=== PATIENT | female | born 1975 | race Caucasian/White ===

== ENCOUNTER → 2020-10-08 15:58 | Outpatient (BNVA) | payer SELFPAY | PROVIDERS: Visit Provider Family Medicine | DX: N30.01 Acute cystitis with hematuria (principal); R30.0 Dysuria | CPT/HCPCS: 81000 ==

== ENCOUNTER → 2020-11-12 11:22 | Outpatient (BNVA) | payer SELFPAY | PROVIDERS: Visit Provider Family Medicine | DX: Z12.4 Encounter for screening for malignant neoplasm of cervix (principal); Z12.11 Encounter for screening for malignant neoplasm of colon; Z80.0 Family history of malignant neoplasm of digestive organs; Z12.39 Encounter for other screening for malignant neoplasm of breast | CPT/HCPCS: 88175 ==

== ENCOUNTER → 2020-12-02 15:29 | Outpatient (BNVA) | payer OTHER, SELFPAY | PROVIDERS: Visit Provider Nurse Practitioner Family | DX: Z20.828 Contact with and (suspected) exposure to other viral communicable diseases (principal); J06.9 Acute upper respiratory infection, unspecified | CPT/HCPCS: 87635 ==

== ENCOUNTER → 2021-01-16 14:54 | Outpatient (BNVA) | payer SELFPAY | PROVIDERS: Visit Provider Family Medicine | DX: A59.9 Trichomoniasis, unspecified (principal); G89.29 Other chronic pain; N89.8 Other specified noninflammatory disorders of vagina | CPT/HCPCS: 87491; 87591 ==

== ENCOUNTER 2024-02-29 06:00 | Outpatient (RCR) | payer OTHER, SELFPAY | END 2024-03-28 23:59 | disposition home or self-care (01) | LOC: MPT 06:00 | PROVIDERS: Visit Provider Nurse Practitioner | DX: S46.812D Strain of other muscles, fascia and tendons at shoulder and upper arm level, left arm, subsequent encounter (principal); X58.XXXD Exposure to other specified factors, subsequent encounter | CPT/HCPCS: 97110; 97124; 97140; 97162; G0283 ==

== ENCOUNTER 2024-11-30 14:10 | Emergency (ER) | payer SELFPAY ==
[2024-11-30 14:29] VITALS: BP 148/83; PULSE 67; RESP 18; TEMP 36.6; O2SAT 97; BMI 32.5
--- NOTE | 2024-11-30 15:22 | ED_ITS ---
HPI - Female Genitourinary 2 General: Chief complaint: Vaginal Bleeding Stated complaint: vaginal bleeding Time Seen by Provider: 11/30/24 15:15 History of Present Illness: 49-year-old female presents emergency ro om with complaints of vaginal bleeding that began yesterday. She states she has been bleeding heavily. She not had a period in 2 years no abdominal pain or pelvic cramping. She is not on any oral anticoagulants. No fever sweats chills no dysuria urgency or frequency Associated symptoms: Deny abdominal pain Related Data Home Medications Medication Instructions Recorded Confirmed sertraline 100 mg tablet 100 mg PO DAILY 11/30/24 11/30/24 Previous Rx's Medication Instructions Recorded ibuprofen 800 mg tablet 800 mg PO Q8H PRN pain 30 days #90 01/16/21 tabs Allergies Allergy/AdvReac Type Severity Reaction Status Date / Time No Known Allergies Allergy Verified 11/30/24 14:33 Review of Systems 2 Const: Denies: fever(s) or chills Card: Denies: chest pain Resp: Denies: dyspnea GI: Denies: abdominal pain : Reports: vaginal bleeding; Denies: dysuria, urinary frequency or urinary urgency Musc: Denies: neck pain or back pain Skin/Breast: Denies: rash PFSH ED 2 PFSH: Medical History Chronic back pain Insomnia Chronic GERD Surgical History History of cholecystectomy Social History Smoking and tobacco/nicotine status: former use of tobacco/nicotine Alcohol intake: former Substance/Drug Use: former Date of last use: 04/2020 Female Reproductive History: Spontaneous abortions: No Physical Exam 2 Const: GENERAL APPEARANCE: cooperative ORIENTATION/CONSCIOUSNESS: Yes awake, Yes oriented to person, Yes oriented to place and Yes oriented to time HENMT: COMMON NORMALS: normocephalic, atraumatic and hearing grossly normal bilaterally HEAD & SCALP: normocephalic and atraumatic Resp: COMMON NORMALS: normal respiratory effort, No retractions, No use of accessory muscles and clear to auscultation bilaterally AUSCULTATION: clear to auscultation bilaterally Cardio: COMMON NORMALS: regular rate, regular rhythm and No murmurs present (Cardio) RATE: regular rate RHYTHM: regular rhythm GI: COMMON NORMALS: Soft to palpation and No hepatosplenomegaly present A USCULTATION: Yes normoactive bowel sounds PALPATION: Yes Soft to palpation, No Tenderness to palpation present (GI), No Guarding due to palpation present (GI) and Yes No hepatosplenomegaly present Extremity: COMMON NORMALS: normal to inspection, capillary refill normal, no clubbing, cyanosis or edema, no calf tenderness and no pedal edema Neuro: SENSORIUM/ORIENTATION: Yes oriented to person, Yes oriented to place and Yes oriented to time Skin: COMMON NORMALS: no rashes or lesions noted GENERAL SKIN EXAM: no rashes or lesions noted Course 2 Vital Signs: Vital signs: Vital Signs Temperature 97.8 F 11/30/24 14:29 Pulse Rate 67 11/30/24 14:29 Respiratory Rate 18 11/30/24 14:29 Blood Pressure 148/83 11/30/24 14:29 Pulse Oximetry 97 11/30/24 14:29 Oxygen Delivery Me thod Room Air 11/30/24 14:29 MDM - Female Medical Decision Making Mildly increased endometrial stripe of 13 mm called and discussed with Dr. Pineda. Only symptoms optional with patient's preference on whether or not which are medroxyprogesterone he will see them on December 04 at 2 PM in his office. Reviewed with the patient discussed the pluses and minuses of being on the medroxyprogesterone she prefers not to. Give her the appointment time. Recheck if she has any worsening vaginal bleeding. Medical Records I reviewed the patient's medical records. Lab Data I reviewed the patient's lab results. 11/30/24 16:35 11/30/24 16:35 Radiology Impressions Transvaginal US 11/30/24 15:22 IMPRESSION: 1. Mild endometrial stripe thickening 2. Small left ovarian cyst Laboratory Results WBC 7.22 10^3/uL (3.29-11.43) 11/30/24 16:35 RBC 4.38 10^6/uL (3.85-5.65) 11/30/24 16:35 Hgb 13.20 g/dL (11.27-16.99) 11/30/24 16:35 Hct 41.7 % (36-47) 11/30/24 16:35 MCV 95.2 fl (85-98) 11/30/24 16:35 MCH 30.1 pg (27-33) 11/30/24 16: MCHC 31.7 g/dL (30-55) 11/30/24 16:35 RDW 13.1 % (12.1-15.1) 11/30/24 16:35 Plt Count 217 10^3/cmm (157-399) 11/30/24 16:35 MPV 10.5 fL (7.4-10.4) H 11/30/24 16:35 Neut % (Auto) 58.4 % 11/30/24 16:35 Lymph % (Auto) 33.5 % 11/30/24 16:35 [place] % (Auto) 6.1 % 11/30/24 16:35 Eos % (Auto) 1.5 % 11/30/24 16:35 Baso % (Auto) 0.4 % 11/30/24 16:35 Neut # (Auto) 4.21 10^3/uL (1.8-7.7) 11/30/24 16:35 Lymph # (Auto) 2.4 10^3/uL (0.8-4.8) 11/30/24 16:35 [place] # (Auto) 0.4 10^3/uL (0.2-0.9) 11/30/24 16:35 Eos # (Auto) 0.1 10^3/uL (0.0-0.8) 11/30/24 16:35 Baso # (Auto) 0.0 10^3/uL (0.0-0.1) 11/30/24 16:35 Nucleated RBC % (auto) 0 % 11/30/24: Nucleated RBCs # 0.0 /100WBC 11/30/24 16:35 PT 12.60 SECONDS (12.1-14.9) 11/30/24 16:35 INR 0.88 (0.8-1.2) 11/30/24 16:35 APTT 27.7 SECONDS (23.9-36.7) 11/30/24 16:35 Sodium 137 mmol/L (136-145) 11/30/24 16:35 Potassium 4.5 mmol/L (3.5-5.1) 11/30/24 16:35 Chloride 104 mmol/L (98-107) 11/30/24 16:35 Carbon Dioxide 23 mmol/L (22-29) 11/30/24 16:35 Anion Gap 14.5 (5-19) 11/30/24 16:35 BUN 14 mg/dL (6-20) 11/30/24 16:35 Creatinine 0.8 mg/dL (0.5-0.9) 11/30/24 16:35 GFR Calculation 75.9 mL/min (90-130) L 11/30/24 16:35 Glucose 96 mg/dL (65-115) 11/30/24 16:35 Calculated Osmolality 284 mOsm/kg (285-295) L 11/30/24 16:35 Calcium 9.1 mg/dL (8.5-10.5) 11/30/24 16:35 Total Bilirubin 0.3 mg/dL (0.15-1.2) 11/30/24 16:35 AST 15 U/L (0-32) 11/30/24 16:35 ALT 13 U/L (0-33) 11/30/24 16:35 Alkaline Phosphatase 105 U/L (35-105) 11/30/24 16:35 Total Protein 6.9 g/dL (6.6-8.7) 11/30/24 16:35 Albumin 4.1 g/dL (3.5-5.2) 11/30/24 16:35 Globulin 2.8 g/dL (1.3-4.6) 11/30/24 16:35 All radiology interpretation(s) finalized by discharge Discharge Plan Discharge Patient Disposition: Home Clinical Impression: Abnormal vaginal bleeding in postmenopausal patient Condition: Stable Prescriptions: No Action ibuprofen 800 mg tablet 800 mg PO Q8H PRN (Reason: pain) 30 Days Qty: 90 2RF Rx Instructions: with food sertraline 100 mg tablet 100 mg PO DAILY Discharge Orders: Discharge ED (Routine); Ordered 11/30/24 Ordered By: Juan Carlos Moe Referrals: Lavon Pineda MD [Physician] - (You will see Dr. Pineda at 2 PM on December 04 at the [facility].) Discharge Diet: Usual diet Discharge Activity: Resume usual activity Patient Instructions: Opioid Safety, Pain Management Activity Restrictions/Additional Instructions: Thank you for choosing [facility] for your healthcare needs today. It is very important that you follow up as instructed or that you return to the Emergency Department should you have concerns or if your condition changes or worsens in any way. You are seen emergency room for abnormal postmenopausal vaginal bleeding. On the ultrasound the endometrial stripe is slightly increased. I discussed your case with the on-call channel marketing program manager Dr. Pineda. He is planning to see you in his office at 2 PM on December 04. We discussed starting medroxyprogesterone to decrease the bleeding you opted not to at this point. If the bleeding increases significantly return to the emergency room. 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
--- NOTE | 2024-11-30 15:22 | USR_ITS ---
PROCEDURE INFORMATION: Exam: US Pelvis, Transvaginal, Non-Obstetric Exam date and time: 11/30/2024 3:55 PM Age: 49 years old Clinical indication: Other: Postmenopausal vaginal bleeding TECHNIQUE: Imaging protocol: Real-time transvaginal pelvic (non-obstetric) ultrasound with image documentation. Transvaginal imaging was used for better evaluation of the endometrium, adnexa, and/or cervix. COMPARISON: No relevant prior studies available. FINDINGS: Uterus: Mild endometrial thickening is noted with the endometrial stripe measuring 13 mm. Right ovary/adnexa: Right ovary is not visualized. Left ovary/adnexa: The left ovary contains a 2.1 cm simple cyst. Good Doppler flow noted. Urinary bladder: Urinary bladder is limited. Intraperitoneal space: No free fluid. US/US transvaginal [id number] IMPRESSION: 1. Mild endometrial stripe thickening 2. Small left ovarian cyst
[2024-11-30 16:42] LABS: Basophils % 0.4 %; Eosinophils # 0.1 10^3/uL (0.0-0.8); Eosinophils % 1.5 %; Hematocrit 41.7 % (36-47); Lymphocytes # 2.4 10^3/uL (0.8-4.8); Lymphocytes % 33.5 %; Mean Corpuscular HGB Conc 31.7 g/dL (30-55); Mean Corpuscular Hemoglobin 30.1 pg (27-33); Mean Corpuscular Volume 95.2 fl (85-98); Mean Platelet Volume 10.5 fL (7.4-10.4); Monocytes # 0.4 10^3/uL (0.2-0.9); Monocytes % 6.1 %; Neutrophils # 4.21 10^3/uL (1.8-7.7); Neutrophils % 58.4 %; Nucleated Red Blood Cells % 0 %; Platelet Count 217 10^3/cmm (157-399); Red Blood Count 4.38 10^6/uL (3.85-5.65); Red Cell Distribution Width 13.1 % (12.1-15.1); White Blood Count 7.22 10^3/uL (3.29-11.43)
[2024-11-30 16:54] LABS: INR 0.88 (0.8-1.2)
[2024-11-30 16:55] LABS: Partial Thromboplastin Time 27.7 SECONDS (23.9-36.7)
[2024-11-30 17:01] LABS: Alanine Aminotransferase 13 U/L (0-33); Albumin Level 4.1 g/dL (3.5-5.2); Alkaline Phosphatase 105 U/L (35-105); Anion Gap 14.5 (5-19); Aspartate Amino Transferase 15 U/L (0-32); Blood Urea Nitrogen 14 mg/dL (6-20); Calcium 9.1 mg/dL (8.5-10.5); Carbon Dioxide 23 mmol/L (22-29); Chloride 104 mmol/L (98-107); Creatinine Clr Calc Pharmacy 105.7666; Globulin 2.8 g/dL (1.3-4.6); Glomerular Filtration Rate 75.9 mL/min (90-130); Glucose 96 mg/dL (65-115); Osmolality Calculated 284 mOsm/kg (285-295); Potassium 4.5 mmol/L (3.5-5.1); Sodium 137 mmol/L (136-145); Total Bilirubin 0.3 mg/dL (0.15-1.2); Total Protein 6.9 g/dL (6.6-8.7)
[2024-11-30 17:26] VITALS: BP 144/56; PULSE 52; O2SAT 96
== END 2024-11-30 17:26 | disposition home or self-care (01) ==
PROVIDERS: Emergency Provider Family Medicine
DX: N93.8 Other specified abnormal uterine and vaginal bleeding (principal); Z87.891 Personal history of nicotine dependence
CPT/HCPCS: 36415; 76830; 80053; 85025; 85610; 85730; 99284

== ENCOUNTER 2025-09-17 16:13 | Emergency (ER) | payer OTHER, SELFPAY ==
[2025-09-17 16:19] VITALS: BP 120/65; PULSE 66; RESP 17; TEMP 36.5; O2SAT 98; BMI 35.4
--- OUTSIDE RECORDS SUMMARY | 2025-09-17 17:08 | XMS_ITS | Clinical Summary ---
Author Organization [facility] Address [address] Attn: Epic Prelude ADT FORREST RECINOS [id number] Care Team Providers Care Tax Compliance Manager Name Role Phone Unavailable Primary Care Provider Unavailabl e Allergies No known active allergies Medications metroNIDAZOLE (FLAGYL) 500 mg tablet Take 1 Tablet (500 mg) by mouth 3 times daily. 21 Tablet None 02/21/2018 Active metroNIDAZOLE (FLAGYL) 500 mg tablet Take 1 Tablet (500 mg) by mouth 3 times daily. 21 Tablet None 02/21/2018 Active Active Problems Problem Noted Date Diagnosed Date Hematemesis 02/07/2010 Epigastric abdominal pain 02/06/2010 Nausea and vomiting 02/06/2010 Immunizations Immunization Administration Dates Next Due (TDVAX)(7 YRS UP) TETANUS AN D DIPHTHERIA TOXOIDS, ADSORBED (2 LF OF TETANUS TOXOID AND 2 LF OF DIPHTHERIA TOXOID), 0.5ML (PF), IM 07/15/2006 Family History Medical History Relation Name Comments Healthy Brother 1 Healthy Brother 2 Healthy Brother 3 Healthy Daughter 1 Healthy Daughter 2 Colon Cancer Father Diabetes Father Hypertension Father Hypertension Mother Thyroid Disease Mother Healthy Sister 1 Healthy Sister 2 Asthma Son Relation Name Status Comments Brother 1 Alive Brother 2 Alive Brother 3 Alive Daughter 1 Alive Daughter 2 Alive Father Alive Mother Alive Sister 1 Alive Sister 2 Alive Son Alive Social History Tobacco Use Types Packs/Day Years Used Date Smoking Tobacco: Every Day Cigarettes Smokeless Tobacco: Never Alcohol Use Standard Drinks/Week Comments Yes 0 (1 standard drink = 0.6 oz pur e alcohol) Comments Unknown Sex and Gender Information Value Date Recorded Sex Assigned at Not on file Legal Sex Female 5:23 PM [employer] Gender Identity Not on file Sexual Orientation Not on file Last Filed Vital Signs Vital Sign Reading Time Taken Comments Blood Pressure 103/57 02/21/2018 11:00 PM CDT Pulse 88 02/21/2018 11:00 PM CDT Temperature 36.7 C (98.1 F) 02/21/2018 11:33 AM CDT Respiratory Rate 20 02/21/2018 9:45 PM CDT Oxygen Saturation - - Inhaled Oxygen Concentration - - Weight 99.8 kg (220 lb) 05/11/2024 10:55 AM CDT Height 175.3 cm (5' 9 ) 05/11/2024 10:55 AM CDT Body Mass Index 32.49 05/11/2024 10:55 AM CDT Plan of Treatment Health Maintenance Due Date Last Done Comments HEPATITIS B VACCINES (1 of 3 - 19+ 3-dose series) 02/27 HPV/Cotest (21-29) 1995 CERVICAL CANCER SCREENING 2004 HPV/Cotest (30-65) 2004 PAP SMEAR 2004 DTAP/TDAP/TD VACCINES (1 - Tdap) 07/16/2006 07/15/20 06 BREAST CANCER SCREENING 2014 COLORECTAL SCREENING 2019 Colorectal Cancer Screening 2019 FIT-DNA Q 3 years 2019 FIT/FOBT Q 1 year 2019 Flex Sig/CT Colonography Q 5 years 2019 ZOSTER VACCINE (1 of 2) 2024 INFLUENZA VACCINE (#1) 2025 Insurance [address] [place] [id number] [employer]
[2025-09-17 19:00] VITALS: BP 127/59; PULSE 51; RESP 15; O2SAT 99
--- NOTE | 2025-09-17 19:21 | CTR_ITS ---
PROCEDURE INFORMATION: Exam: CT Head Without Contrast Exam date and time: 09/17/2025 7:36 PM Age: 50 years old Clinical indication: Pain; Headache; Other: Lt sided pressure; PT complains of head pressure that goes down her neck and to her eyes for the last week. PT denies any recent trauma. ; Additional info: L sided pressure TECHNIQUE: Imaging protocol: Computed tomography of the head without contrast. Radiation optimization: All CT scans at this facility use at least one of these dose optimization techniques: automated exposure control; mA and/or kV adjustment per patient size (includes targeted exams where dose is matched to clinical indication); or iterative reconstruction. COMPARISON: No relevant prior studies available. RADIATION DOSE METRICS: Total DLP (mGy-cm): 937.43 FINDINGS: Brain: Normal. No hemorrhage. Unremarkable white matter. No mass effect. Cerebral ventricles: No ventriculomegaly. Paranasal sinuses: Visualized sinuses are unremarkable. No fluid levels. Mastoid air cells: Visualized mastoid air cells are well aerated. Bones: Unremarkable. No acute fracture. Soft tissues: Unremarkable. CT/CT head wo con* [id number] IMPRESSION: No acute intracranial abnormality.
--- NOTE | 2025-09-17 19:21 | W.ED.HA ---
HPI - Headache General: Chief Complaint: Headache Stated Complaint: Pressure inside of her head Time Seen by Provider: 09/17/25 18:50 Source: patient Mode of arrival: ambulatory Limitations: no limitations History of Present Illness: Patient is a 50-year-old here for a complaint of pressure to the left side of her head that she has had over the past week or so. Patient states she has been having some issues with her left neck and shoulder and wonders if this could be related to musculoskeletal neck pain. Patient states she is not having any pain and describes the sensation as pressure . She is not having any visual changes or loss of vision. No neurologic deficits. She is not complaining of neck stiffness. No recent illness. No fevers. She states she does not have a history of migraine headaches. She states she is ambulating normally without difficulty or assistance. No altered mental status. MD elicited complaint: headache ( pressure ) Onset description: gradually Location: left Quality & Timing: pressure Exacerbating factors: none Relieving factors: nothing Associated symptoms: Reports no associated symptoms; Deny chest pain, fever(s), malaise, nausea, rash or vomiting Treatments prior to arrival: none Related Data Home Medications ?Medication ?Instructions ?Recorded ?Confirmed sertraline 100 mg tablet 100 mg PO DAILY 11/30/24 12/04/24 Previous Rx's ?Medication ?Instructions ?Recorded ibuprofen 800 mg tablet 800 mg PO Q8H PRN pain 30 days #90 01/16/21 tabs norethindrone 1.5 mg-ethinyl 1 tab PO DAILY #84 tabs 12/04/24 estradiol 30 mcg(21)/iron 75 mg(7) tablet ( (28)) Allergies Allergy/AdvReac Type Severity Reaction Status Date / Time No Known Allergies Allergy Verified 12/04/24 14:23 Review of Systems Const: Denies: fever(s), chills, body aches, fatigue or malaise Card: Denies: chest pain Resp: Denies: dyspnea GI: Denies: abdominal pain, nausea, vomiting or change in bowel habits : Denies: flank pain, dysuria or hematuria Musc: Reports: neck pain and joint pain (L shoulder); Denies: back pain, extremity pain, extremity swelling, joint swelling, joint redness or joint warmth Skin/Breast: Denies: rash Neuro: Denies: headache(s), numbness in extremities, weakness in extremities or sensory changes PFSH ED PFSH: Medical History Chronic back pain Insomnia Chronic GERD Surgical History History of cholecystectomy Family History Mother Breast cancer Hyperlipidemia Father Colon cancer Heart disease Hypertension Diabetes Social History Smoking and tobacco/nicotine status: former use of tobacco/nicotine Alcohol intake: former Substance/Drug Use: former Date of last use: 04/2020 Female Reproductive History: Spontaneous abortions: No Physical Exam Const: COMMON NORMALS: no acute distress, average body habitus, patient oriented x3, no limitations, healthy appearing, alert and well nourished GENERAL APPEARANCE: cooperative ORIENTATION/CONSCIOUSNESS: Yes awake, Yes oriented to person, Yes oriented to place and Yes oriented to time HENMT: COMMON NORMALS: normocephalic and atraumatic HEAD & SCALP: normal to inspection, normocephalic and atraumatic FACE & SINUS: normal facial exam and face symmetric TYMPANIC MEMBRANE: TM normal on the left Eye: GENERAL EYE: appearance normal, both eyes and all related structures and normal light reflex DIRECT OPHTHALMOSCOPY: Yes normal light reflex Neck/C-Spine: COMMON NORMALS: full ROM, no lymphadenopathy, no meningeal signs and no JVD GENERAL: Yes normal visual inspection, No anterior neck swelling and No submandibular swelling CERVICAL SPINE: No Cervical spine tenderness, No step off deformity, Yes Paracervical muscle tenderness left and No Paracervical spasm OTHER: mild tenderness at L occiput Cardio: COMMON NORMALS: no JVD Back/Pelvis: COMMON NORMALS: thoracic and lumbar spine normal to inspection and no thoracic nor lumbar tenderness Extremity: COMMON NORMALS: normal to inspection, full ROM, capillary refill normal, no joint enlargement, no clubbing, cyanosis or edema, no calf tenderness and no pedal edema GENERAL: Yes normal exam except as noted Neuro: COMMON NORMALS: patient oriented x3, moves all extremities, no focal motor deficits, no sensory deficits noted and gait normal SENSORIUM/ORIENTATION: Yes alert, Yes oriented to person, Yes oriented to place and Yes oriented to time MENINGEAL SIGNS: Yes no meningeal signs Course Vital Signs: Vital signs: Vital Signs Temperature 97.7 F 09/17/25 16:19 Pulse Rate 54 L 09/17/25 21:05 Respiratory Rate 15 09/17/25 19:00 Blood Pressure 120/66 09/17/25 21:05 Pulse Oximetry 98 09/17/25 21:05 Oxygen Delivery Me thod Room Air 09/17/25 19:00 MDM - Headache Medical Decision Making Patient appears no acute distress. CT head showing no acute intracranial abnormality. She was given IV Toradol which she did feel like helped her discomfort. We spoke about following up with primary care if symptoms do not improve with continued conservative therapy. We discussed returning to the emergency department for symptoms such as severe headache, stroke like symptoms, visual changes/loss of vision, fevers, stiff neck, etc. Differential Diagnosis Likely migraine, tension headache and headache Medical Records I reviewed the patient's medical records. Lab Data Radiology Impressions Head CT 09/17/25 19:21 IMPRESSION: No acute intracranial abnormality. All radiology interpretation(s) finalized by discharge Discharge Plan Discharge Patient Disposition: Home Clinical Impression: Pressure in head Condition: Stable Prescriptions: No Action ibuprofen 800 mg tablet 800 mg PO Q8H PRN (Reason: pain) 30 Days Qty: 90 2RF Rx Instructions: with food norethindrone-e.estradiol-iron [ ()] 1.5 mg-30 mcg (21)/75 mg (7) tablet 1 tab PO DAILY Qty: 84 0RF sertraline 100 mg tablet 100 mg PO DAILY Discharge Orders: Discharge ED (Routine); Ordered 09/17/25 Ordered By: Nicol Gandhi Patient Instructions: Patient Portal & Danielle Instructions Stand Alone Forms: Work/School Release Print Language: Gibraltarian Coding Level of Care Code 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
[2025-09-17 20:00] VITALS: BP 148/64; PULSE 54; O2SAT 100
[2025-09-17 21:05] VITALS: BP 120/66; PULSE 54; O2SAT 98
== END 2025-09-17 21:08 | disposition home or self-care (01) ==
PROVIDERS: Emergency Provider Physician Assistant
DX: R51.9 Headache, unspecified (principal); Z87.891 Personal history of nicotine dependence
CPT/HCPCS: 70450; 96374; 99285; J1885